=== PATIENT | male | born 1990 | race African-American/Black ===

== ENCOUNTER 2016-05-30 11:29 | Inpatient (IN) | payer SELFPAY ==
[~2016-05-30] VITALS: Ht 180.3 cm; Wt 65.8 kg
[2016-05-30] MEDS ORDERED: MORPHINE SULFATE 4 MG/ML CPJ (NOT FOR IM USE) IV STA (11:33)
[2016-05-30] MEDS ORDERED: FAMOTIDINE 20MG/2ML VIAL IV STA (11:33)
[2016-05-30] MEDS ORDERED: ONDANSETRON HCL 4MG/2ML VIAL IV STA (11:33)
[2016-05-30] MEDS ORDERED: SODIUM CHLORIDE 0.9% 1,000 ML IV ONE (11:33)
[2016-05-30] MEDS ORDERED: LORAZEPAM 2MG/ML CPJ IV ONE (11:45)
[2016-05-30 12:06] LABS: HEMATOCRIT. 47.2 % (42.0-52.0); HEMOGLOBIN. 15.5 g/dL (14.0-18.0); MEAN CORPUSCULAR HEMOGLOBIN 27.2 pg (28.0-32.0); MEAN CORPUSCULAR HGB CONC 32.9 g/dL (31.0-37.0); MEAN CORPUSCULAR VOLUME 82.5 fL (80.0-94.0); MEAN PLATELET VOLUME 9.1 fl (7.4-10.4); PLATELET 169 x1000/uL (130-400); RED BLOOD CELL COUNT 5.72 mill/uL (4.7-6.1); RED CELL DISTRIBUTION WIDTH 14.3 % (11.6-14.6); WHITE BLOOD COUNT 8.1 x1000/uL (4.5-11.0)
[2016-05-30 12:07] LABS: DIFFERENTIAL COMMENT 1
[2016-05-30 12:11] LABS: INR 1.1; PARTIAL THROMBOPLASTIN TIME 24.1 sec (24.0-34.0); PROTHROMBIN TIME 11.9 sec
[2016-05-30 12:16] LABS: ALANINE AMINOTRANSFERASE 23 IU/L (13-61); ALBUMIN 4.4 g/dL (3.4-5.0); ANION GAP 15; CALCIUM 9.5 mg/dL (8.5-10.1); CARBON DIOXIDE 24 mEq/L (21-32); CHLORIDE 105 mEq/L (98-107); ETHANOL BLOOD < 10 mg/dL; INDEX HEMOLYSI 1 (1-3); INDEX ICTERIC 1 (1-4); INDEX LIPEMIC 1 (1-3); LIPASE 201 IU/L (73-393); UREA NITROGEN BLOOD 16 mg/dL (7-21); eGFR > 60 mL/min (>60)
[2016-05-30 12:19] LABS: TROPONIN I < 0.02 ng/mL (0.00-0.04)
[2016-05-30 12:29] LABS: PLATELET ESTIMATE NORMAL
[2016-05-30] MEDS ORDERED: SODIUM CHLORIDE 0.9% 10ML VIAL ONE (13:14)
[2016-05-30] MEDS ORDERED: IOHEXOL-300 100 ML BOTTLE ONE (13:14)
[2016-05-30 15:07] LABS: CLARITY URINE CLEAR (CLEAR); COLOR URINE YELLOW (YELLOW); GLUCOSE URINE NEGATIVE (NEGATIVE); KETONES URINE 1+ (NEGATIVE); LEUKOCYTE ESTERASE URINE NEGATIVE (NEGATIVE); NITRITE URINE NEGATIVE (NEGATIVE); OCCULT BLOOD URINE NEGATIVE (NEGATIVE); PH URINE 8.5 (4.5-8.0); PROTEIN URINE NEGATIVE (NEGATIVE); SPECIFIC GRAVITY URINE 1.056 (1.005-1.030); UROBILINOGEN URINE 0.2 E.U./dL (0.2-1.0)
[2016-05-30 15:20] VITALS: BP 113/63
[2016-05-30 15:24] LABS: *AMPHETAMINES SCREEN URINE NEGATIVE (NEGATIVE); *BARBITURATES SCREEN URINE NEGATIVE (NEGATIVE); *BENZODIAZEPINES SCREEN URINE NEGATIVE (NEGATIVE); *COCAINE SCREEN URINE NEGATIVE (NEGATIVE); CANNABINOID URINE SCREEN PRESUMTIVE POSITIVE (NEGATIVE); ECSTASY MDMA SCREEN URINE NEGATIVE (NEGATIVE); METHADONE URINE SCREEN NEGATIVE (NEGATIVE); OPIATES URINE SCREEN NEGATIVE (NEGATIVE); PHENCYCLIDINE URINE SCREEN NEGATIVE (NEGATIVE)
[2016-05-30 15:30] VITALS: BP 113/63
[2016-05-30] MEDS: SODIUM CHLORIDE 0.9% 1,000 ML IV SCH (18:41)
[2016-05-30] MEDS: MORPHINE SULFATE 2 MG/ML CPJ (NOT FOR IM USE) IV PRN (18:41)
[2016-05-30 20:00] VITALS: BP 109/63
[2016-05-31] VITALS: BP 112/63
[2016-05-31] MEDS ORDERED: LEVOFLOXACIN 500MG PREMIX 100 ML IV SCH (02:00)
[2016-05-31 04:00] VITALS: BP 118/74
[2016-05-31] MEDS: SODIUM CHLORIDE 0.9% 1,000 ML IV SCH (07:19)
[2016-05-31 08:00] VITALS: BP 123/63
[2016-05-31] MEDS: MORPHINE SULFATE 2 MG/ML CPJ (NOT FOR IM USE) IV PRN (09:43)
[2016-05-31 12:00] VITALS: BP 104/69
[2016-05-31 16:00] VITALS: BP 97/61
[2016-05-31 17:08] VITALS: BP 98/59
[2016-05-31 17:10] LABS: BASOPHILS % 0.8 % (0.0-2.0); EOSINOPHILS % 1.2 % (0.0-5.0); HEMOGLOBIN. 14.1 g/dL (14.0-18.0); LYMPHOCYTES % 38.7 % (20.0-50.0); MEAN CORPUSCULAR HEMOGLOBIN 27.2 pg (28.0-32.0); MEAN CORPUSCULAR HGB CONC 32.9 g/dL (31.0-37.0); MEAN CORPUSCULAR VOLUME 82.6 fL (80.0-94.0); MONOCYTES % 8.9 % (2.0-8.0); NEUTROPHILS % 50.4 % (40.0-76.0); PLATELET 147 x1000/uL (130-400); RED CELL DISTRIBUTION WIDTH 14.1 % (11.6-14.6); WHITE BLOOD COUNT 3.2 x1000/uL (4.5-11.0)
[2016-05-31 17:12] LABS: CALCIUM 8.3 mg/dL (8.5-10.1); CHLORIDE 103 mEq/L (98-107); INDEX HEMOLYSI 1 (1-3); INDEX ICTERIC 1 (1-4); INDEX LIPEMIC 1 (1-3)
[2016-05-31 17:17] LABS: ANION GAP 12; CARBON DIOXIDE 28 mEq/L (21-32); UREA NITROGEN BLOOD 12 mg/dL (7-21); eGFR > 60 mL/min (>60)
== END 2016-05-31 18:25 | disposition home or self-care (01) | DRG 247 ==
LOC: ER 11:29 → 6EST 16:07
PROVIDERS: ADMIT Family Medicine; ATTEND Family Medicine
DX: K56.7 Ileus, unspecified (principal); J45.909 Unspecified asthma, uncomplicated; K52.9 Noninfective gastroenteritis and colitis, unspecified; F12.90 Cannabis use, unspecified, uncomplicated; R73.9 Hyperglycemia, unspecified; Z83.3 Family history of diabetes mellitus; Z82.49 Family history of ischemic heart disease and other diseases of the circulatory system
CPT/HCPCS: 36415; 71010; 74177; 80048; 80053; 80305; 81003; 83690; 84484; 85025; 85610; 85730; 96361; 96374; 96375; 99285; A4216; G0482; J1956; J2270; J2405; J3490; J7030; Q9967